=== PATIENT | male | born 2000 ===

== ENCOUNTER 2021-04-07 20:27 | Emergency (ER) | payer OTHER ==
--- OUTSIDE RECORDS SUMMARY | 2021-04-07 20:29 | XMS REPORT | Continuity of Care Document ---
:2000 Author Organization [facility] t Address [address] [place] [address] Care Team Providers Name Role Phone YOLANDA Attending Clinician Unavailable Problems This patient has no known problems. Allergies, Adverse Reactions, Alerts This patient has no known allergies or adverse reactions. Medications This patient has no known medications. Procedures This patient has no known procedures. Encounters Start End Encounter Admission Attending Care Care Encounter Source Date/Time Date/Time Type Type Clinicians Facility Department ID 2021-04-03 2021-04-03 Outpatient [facility], [facility] [id number] 00:00:00 00:00:00 MARÍA ELENA [address] 2021-04-03 2021-04-03 Outpatient [facility] [id number] 00:00:00 00:00:00 MARÍA ELENA [address] 2019-10-23 2019-10-23 Outpatient [facility]FORMERLY [facility], [facility] [id number] 00:00:00 00:00:00 MARÍA ELENA [address] 2019-10-23 2019-10-23 Outpatient [facility]DAFORMERLY [facility], [facility] [id number] 00:00:00 00:00:00 MARÍA ELENA [address] Results This patient has no known results.
[2021-04-07] MEDS ORDERED: ONDANSETRON 4 MG/2 ML VIAL ONE (21:15)
[2021-04-07] MEDS ORDERED: MORPHINE 4 MG/ML SYR ONE (21:15)
[2021-04-07 21:57] LABS: BUN Blood Urea Nitrogen 13 mg/dL (7-18); Bicarbonate 29 mmol/L (21-32); Glucose Level 131 mg/dL (74-106); Potassium 4.2 mmol/L (3.5-5.1); Sodium Level 138 mmol/L (136-145)
[2021-04-07 22:00] LABS: Hematocrit 44.5 % (39.6-49.0); Lymphocytes % 14.3 % (15.3-44.8); MPV 9.6 fL (7.6-11.3); RBC Red Blood Cell Count 5.25 M/uL (4.33-5.43)
--- NOTE | 2021-04-07 22:03 | RAD REPORT ---
EXAM DESCRIPTION: RAD - Clavicle Right - 04/07/2021 9:52 pm CLINICAL HISTORY: Shoulder pain FINDINGS: Comminuted fracture mid right clavicle with marked distraction fracture fragments.
--- NOTE | 2021-04-07 22:04 | RAD REPORT ---
EXAM DESCRIPTION: Jimmy Single View04/07/2021 9:52 pm CLINICAL HISTORY: Chest pain COMPARISON: none FINDINGS: The lungs appear clear of acute infiltrate. The heart is normal size Comminuted fracture mid right clavicle with marked distraction fracture fragments.
[2021-04-07] MEDS ORDERED: NA CHLORIDE 0.9% 1,000 ML ONE (22:14)
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
[2021-04-08 00:39] VITALS: TEMP 98.3
[2021-04-08 00:42] VITALS: BP 103/74; O2SAT 100
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
== END 2021-04-08 00:29 | disposition short-term general hospital (02) ==
LOC: ER 20:27
DX: S42.021A Displaced fracture of shaft of right clavicle, initial encounter for closed fracture (principal); V29.9XXA Motorcycle rider (driver) (passenger) injured in unspecified traffic accident, initial encounter; Z20.822 Contact with and (suspected) exposure to COVID-19
CPT/HCPCS: 96361; 85025; 80048; 36415; 86900; 86850; 86901; 70450; 72125; 71260; 74177; 71045; 73000; 96375; 96374; 99285; U0003; Q9967; J7030; J2405